=== PATIENT | male | born 1960 | race Caucasian/White ===

== ENCOUNTER → 2019-07-22 | Day surgery (SDC) | payer BC ==
[~2019-07-22] MED LIST: BUPIVACAINE 0.25% 30ML SDV INJ ONE; CEFAZOLIN SOD 1 GM/NS 50ML 150 ML IV ONE; DESFLURANE 240 ML BTL INH ONE; FENTANYL CITRATE/PF 100MCG/2 ML INJ ONE; INDOMETHACIN75 MG PO; KETOROLAC TROMETHAMINE 30 MG/ML VIAL ONE; LIDOCAINE 1% W/EPINEPHRINE 20 ML VIAL ONE; LIDOCAINE HCL 2% LOCAL INJ 5 ML SDV VIAL INJ ONE; LISINOPRIL-HCT1 EACH PO; MIDAZOLAM HCL 2 MG/2 ML VIAL ONE; MORPHINE SULFATE INJ 10 MG/ML ONE; ONDANSETRON HCL INJ 2MG/ML 2ML 2 MG/ML VIAL ONE; PROPOFOL IV EMULSION 10 MG/ML 20 ML VIAL ONE; TESTOSTERONE1.25 GM TOP
[2019-07-22 11:25] VITALS: BP 138/87
--- NOTE | 2019-07-22 22:27 | NUR ---
DATE OF SURGERY: 07/22/19 PREOPERATIVE DIAGNOSES: Left Knee Medial Meniscus Tear POSTOPERATIVE DIAGNOSES: Left Knee Medial Meniscus Tear, Medial Compartment Chondromalacia, Trochlea Chondromalacia, Impinging Plica, Pericruciate cyst PROCEDURE: Left Knee Arthroscopic Partial Medial Meniscectomy, Medial Femoral Condyle Chondroplasty, Trochlea Chondroplasty, Excision of Medial Impinging Plica, Excision of pericruciate cyst SURGEON: Adelina Steiner DO ANESTHESIA: General COMPLICATIONS: None TOURNIQUET: Applied but not inflated. No tourniquet EBL: Minimal INDICATIONS: Due to persistent pain and limitations on activity combined with findings on exam and imaging, the patient requests surgical treatment. Nonopera tive care and alternative surgical options were reviewed. We agreed that this provided the best risk/benefit profile for this patient, understanding and accepting risks of recurrent/persistent symptoms, infection, bleeding, stiffness, neurological/vascular damage, failure to improve and anesthetic complication (as reviewed by anesthesia service). Also, the patient understands that arthroscopic treatment of articular cartilage lesions provides temporary incomplete relief but that meniscal symptoms should be well addressed. FINDINGS: LEFT Knee Patella Grade 1 Chondromalacia Trochlea - Grade 1 Chondromalacia Lateral Gutter Normal Medial Gutter Normal Medial Compartment Femoral - Grade 3 Chondromalacia, Chondral defect of weight bearing surface Tibial - Grade 1 Chondromalacia Medial Meniscus - small posterior body horn junction attenuation/tear Cruciate region - PCL Cruciate cyst Lateral Compartment Femoral - Normal Tibial - Normal Lateral Meniscus - Normal Synovium - Large Impinging Plica PROCEDURE: With the patient in the supine position with all prominences well padded, general anesthesia was obtained. Sterile prepping and draping were performed. Antibiotics had been given and a time out performed. After an injection of 1% Lidocaine with Epinephrine in the proposed incision sites, The arthroscope was i nserted via a small lateral parapatellar tendon incision into the patellofemoral space. Under direct visualization, a medial parapatellar tendon portal was created providing a working portal. Diagnostic arthroscopy was performed and the above findings were noted. Within the patellofemoral space, the large impinging Plica was excised with a shaver Within the medial compartment, the medial meniscus was debrided to establish a well-balanced rim, removing approximately 10% of the posterior horn body junction of the medial meniscus. A stable border was created. There was grade 2-3 chondromalacia, which was debrided to stable borders. Within the intercondylar space, the ACL was visualized and intact. A pericruciate cyst on the PCL was debrided with a shaver. The lateral compartment was normal without a meniscus tear or significant chondromalacia Chondroplasty was performed on the trochlea to provide a stable border. The joint was extravasated and .25% marcaine was injected into the knee. The incisions were closed and more local was injected around the portal sites. Steristrips, Xeroform, 4x4s, ABDs and a compressive ARLEY bandage were applied. The patient was awakened and transferred to the PACU in satisfactory condition having tolerated the procedure well.
== END | disposition home or self-care (01) ==
LOC: OR 08:07
PROVIDERS: ATTEND Orthopaedic Surgery
DX: S83.232A Complex tear of medial meniscus, current injury, left knee, initial encounter (principal); M94.262 Chondromalacia, left knee; M67.52 Plica syndrome, left knee; M25.862 Other specified joint disorders, left knee; I10 Essential (primary) hypertension; G47.33 Obstructive sleep apnea (adult) (pediatric); X58.XXXA Exposure to other specified factors, initial encounter; Z01.810 Encounter for preprocedural cardiovascular examination
CPT/HCPCS: 29881; 93005; J0690; J1885; J2001; J2250; J2270; J2405; J2704; J3010

== ENCOUNTER 2022-12-14 09:23 | Emergency (ER) | payer BC ==
[~2022-12-14] VITALS: Ht 180.3 cm; Wt 176.4 kg
[~2022-12-14 09:23] MED LIST changes: -BUPIVACAINE 0.25% 30ML SDV INJ ONE; -CEFAZOLIN SOD 1 GM/NS 50ML 150 ML IV ONE; -DESFLURANE 240 ML BTL INH ONE; -FENTANYL CITRATE/PF 100MCG/2 ML INJ ONE; -KETOROLAC TROMETHAMINE 30 MG/ML VIAL ONE; -LIDOCAINE 1% W/EPINEPHRINE 20 ML VIAL ONE; -LIDOCAINE HCL 2% LOCAL INJ 5 ML SDV VIAL INJ ONE; -MIDAZOLAM HCL 2 MG/2 ML VIAL ONE; -MORPHINE SULFATE INJ 10 MG/ML ONE; -ONDANSETRON HCL INJ 2MG/ML 2ML 2 MG/ML VIAL ONE; -PROPOFOL IV EMULSION 10 MG/ML 20 ML VIAL ONE
[2022-12-14] MEDS ORDERED: ONDANSETRON HCL INJ 2MG/ML 2ML 2 MG/ML VIAL IV STA (09:24)
[2022-12-14] MEDS ORDERED: SODIUM CHLORIDE 0.9% 1000ML 1,000 ML IV ONE ×2 (09:30→11:45)
[2022-12-14 09:58] LABS: BASOPHILS # (AUTO) 0.1 (0.0-0.1); BASOPHILS % 0.6 % (0.0-1.0); EOSINOPHILS # (AUTO) 0.1 (0.0-0.4); EOSINOPHILS % 0.8 % (0.0-6.0); HEMATOCRIT 44.9 % (38.2-49.6); HEMOGLOBIN 14.7 g/dL (14.0-18.0); LYMPHOCYTES % 12.4 % (18.0-39.1); MEAN CORPUSCULAR HEMOGLOBIN 31.1 pg (28-32); MEAN CORPUSCULAR HGB CONC 32.7 g/dL (31-35); MEAN CORPUSCULAR VOLUME 95.1 fL (81-99); MONOCYTES # (AUTO) 1.7 (0.2-0.8); MONOCYTES % 10.4 % (4.4-11.3); NEUTROPHILS # (AUTO) 11.9 (2.1-6.9); PLATELET COUNT 208 x10e3/uL (140-360); RED BLOOD COUNT 4.72 x10e6/uL (4.3-5.7); RED CELL DISTRIBUTION WIDTH 12.5 % (11.7-14.4)
[2022-12-14] MEDS ORDERED: Morphine 4mg INJECTION 4 MG/ML INJ IV ONE (10:00)
[2022-12-14 10:15] LABS: ALBUMIN 3.8 g/dL (3.5-5.0); ALBUMIN/GLOBULIN RATIO 1.1 (0.8-2.0); ANION GAP 16.4 mmol/L (8-16); CALCIUM 9.3 mg/dL (8.4-10.2); CREATININE, SERUM 1.03 mg/dL (0.72-1.25); POTASSIUM 4.4 mmol/L (3.5-5.1)
[2022-12-14] MEDS ORDERED: IOPAMIDOL 370 MG/ML 100 ML INFUS..BTL INJ ONE (11:05)
[2022-12-14] MEDS ORDERED: METRONIDAZOLE 500MG/NS 100ML 100 ML IV STA (11:36)
[2022-12-14] MEDS ORDERED: KETOROLAC TROMETHAMINE 30 MG/ML VIAL IV STA (11:39)
[2022-12-14] MEDS ORDERED: CEFTRIAXONE 1 GM VIAL IV ONE (11:45)
[2022-12-14 11:47] LABS: CLARITY,URINE CLEAR (CLEAR); COLOR,URINE YELLOW (YELLOW)
[2022-12-14 11:48] LABS: BACTERIA,URINE FEW /HPF; EPITHELIAL CELLS,URINE FEW /LPF; KETONES,URINE NEGATIVE (NEGATIVE); LEUKOCYTE ESTERASE ,URINE NEGATIVE (NEGATIVE); NITRITE,URINE NEGATIVE (NEGATIVE); PROTEIN,URINE DIPSTICK NEGATIVE (NEGATIVE); RBC,URINE 0-5 /HPF (0-5); URINE UROBILINOGEN 0.2 mg/dL (0.2 - 1); WBC,URINE (MAN) 0-5 /HPF (0-5)
[2022-12-14] MEDS ORDERED: AMOX TR-K CLV1 EAC2 PO (13:10)
[2022-12-14] MEDS ORDERED: ONDANSETRON ODT4 MG PO (13:11)
[2022-12-14 13:38] VITALS: BP 132/81
[2022-12-17] MEDS ORDERED: KETOROLAC TROME10 MG PO (10:15)
== END 2022-12-14 13:00 | disposition home or self-care (01) ==
LOC: ER 09:25
DX: R10.32 Left lower quadrant pain (principal); K57.92 Diverticulitis of intestine, part unspecified, without perforation or abscess without bleeding; I10 Essential (primary) hypertension
CPT/HCPCS: 36415; 74177; 80053; 81001; 83690; 85025; 99284; J0696; J1885; J2270; J2405; J7030; Q9967

== ENCOUNTER 2022-12-15 12:47 | Observation (INO) | payer BC ==
[~2022-12-15] VITALS: Ht 180.3 cm; Wt 176.4 kg
[~2022-12-15 12:47] MED LIST changes: +AMOX TR-K CLV1 EAC2 PO; +ONDANSETRON ODT4 MG PO
[2022-12-15] MEDS ORDERED: ONDANSETRON HCL INJ 2MG/ML 2ML 2 MG/ML VIAL IV STA (12:58)
[2022-12-15] MEDS ORDERED: METRONIDAZOLE 500MG/NS 100ML 100 ML IV ONE ×2 (13:00→18:30)
[2022-12-15] MEDS ORDERED: Morphine 4mg INJECTION 4 MG/ML INJ IV ONE (13:00)
[2022-12-15] MEDS ORDERED: CEFTRIAXONE 1 GM VIAL IV ONE (13:00)
[2022-12-15 13:38] LABS: BASOPHILS # (AUTO) 0.1 (0.0-0.1); BASOPHILS % 0.8 % (0.0-1.0); EOSINOPHILS # (AUTO) 0.3 (0.0-0.4); EOSINOPHILS % 2.8 % (0.0-6.0); HEMATOCRIT 42.9 % (38.2-49.6); HEMOGLOBIN 14.2 g/dL (14.0-18.0); LYMPHOCYTES # (AUTO) 1.6 (1.0-3.2); LYMPHOCYTES % 17.3 % (18.0-39.1); MEAN CORPUSCULAR HGB CONC 33.1 g/dL (31-35); MEAN CORPUSCULAR VOLUME 93.7 fL (81-99); MONOCYTES # (AUTO) 0.8 (0.2-0.8); MONOCYTES % 9.1 % (4.4-11.3); NEUTROPHILS # (AUTO) 6.3 (2.1-6.9); NEUTROPHILS % 69.6 % (38.7-80.0); PLATELET COUNT 238 x10e3/uL (140-360); RED BLOOD COUNT 4.58 x10e6/uL (4.3-5.7); RED CELL DISTRIBUTION WIDTH 12.3 % (11.7-14.4)
[2022-12-15 13:57] LABS: ALBUMIN 3.5 g/dL (3.5-5.0); ANION GAP 15.8 mmol/L (8-16); CALCIUM 9.1 mg/dL (8.4-10.2); CREATININE, SERUM 0.89 mg/dL (0.72-1.25); POTASSIUM 3.8 mmol/L (3.5-5.1)
[2022-12-15 16:50] VITALS: BP 134/80
[2022-12-15 17:25] VITALS: BP 134/80
[2022-12-15] MEDS: SODIUM CHLORIDE 0.9% 1000ML 1,000 ML IV SCH ×2 (17:54→21:28)
[2022-12-15 18:27] VITALS: BP 134/80
[2022-12-15 20:00] VITALS: BP 110/72
[2022-12-15] MEDS: Morphine 4mg INJECTION 4 MG/ML INJ IV PRN (22:17)
[2022-12-15] MEDS: ONDANSETRON HCL INJ 2MG/ML 2ML 2 MG/ML VIAL IV PRN (22:17)
[2022-12-16] VITALS (7 sets, daily range): BP systolic 100–120; BP diastolic 62–74
[2022-12-16] MEDS: SODIUM CHLORIDE 0.9% 1000ML 1,000 ML IV SCH ×3 (04:33→22:34)
[2022-12-16] MEDS: ONDANSETRON HCL INJ 2MG/ML 2ML 2 MG/ML VIAL IV PRN ×2 (04:33→08:38)
[2022-12-16] MEDS: Morphine 4mg INJECTION 4 MG/ML INJ IV PRN ×2 (04:34→08:38)
[2022-12-16 06:25] LABS: BASOPHILS # (AUTO) 0.1 (0.0-0.1); BASOPHILS % 1.4 % (0.0-1.0); EOSINOPHILS # (AUTO) 0.3 (0.0-0.4); EOSINOPHILS % 3.5 % (0.0-6.0); HEMOGLOBIN 13.6 g/dL (14.0-18.0); LYMPHOCYTES # (AUTO) 1.5 (1.0-3.2); LYMPHOCYTES % 18.2 % (18.0-39.1); MEAN CORPUSCULAR HEMOGLOBIN 33.3 pg (28-32); MEAN CORPUSCULAR HGB CONC 31.6 g/dL (31-35); MONOCYTES # (AUTO) 0.8 (0.2-0.8); MONOCYTES % 9.2 % (4.4-11.3); NEUTROPHILS # (AUTO) 5.6 (2.1-6.9); NEUTROPHILS % 67.1 % (38.7-80.0); PLATELET COUNT 200 x10e3/uL (140-360); RED BLOOD COUNT 4.09 x10e6/uL (4.3-5.7); RED CELL DISTRIBUTION WIDTH 13.1 % (11.7-14.4)
[2022-12-16 06:28] LABS: ALBUMIN 3.2 g/dL (3.5-5.0); ANION GAP 17.2 mmol/L (8-16); CALCIUM 8.9 mg/dL (8.4-10.2); CREATININE, SERUM 0.87 mg/dL (0.72-1.25); POTASSIUM 4.2 mmol/L (3.5-5.1)
[2022-12-16 06:35] LABS: MEAN CORPUSCULAR VOLUME 105.1 fL (81-99)
[2022-12-16] MEDS ORDERED: ACETAMINOPHEN 325 MG TAB PO PRN (08:30)
[2022-12-16] MEDS ORDERED: KETOROLAC TROMETHAMINE 10 MG TAB PO PRN (08:45)
[2022-12-16] MEDS: DOCUSATE SODIUM 100 MG CAP PO SCH (08:56)
[2022-12-16] MEDS: SENNOSIDES 8.6 MG TAB PO SCH (08:56)
[2022-12-16] MEDS ORDERED: KETOROLAC TROMETHAMINE 30 MG/ML VIAL IV ONE (10:00)
[2022-12-16] MEDS: HYDROCODONE/APAP 7.5MG-325MG 1 EA TAB PO PRN ×2 (12:43→17:01)
[2022-12-16] MEDS ORDERED: POLYETHYLENE GLYCOL 3350 17 GM PACK PO ONE (16:00)
[2022-12-16] MEDS ORDERED: ENOXAPARIN SOD INJ 40 MG/0.4 ML SYR SC SCH (17:00)
[2022-12-17 00:55] VITALS: BP 124/76
[2022-12-17 05:37] LABS: BASOPHILS # (AUTO) 0.1 (0.0-0.1); BASOPHILS % 1.3 % (0.0-1.0); EOSINOPHILS # (AUTO) 0.3 (0.0-0.4); EOSINOPHILS % 5.3 % (0.0-6.0); HEMATOCRIT 38.7 % (38.2-49.6); HEMOGLOBIN 12.6 g/dL (14.0-18.0); LYMPHOCYTES # (AUTO) 1.5 (1.0-3.2); LYMPHOCYTES % 24.1 % (18.0-39.1); MEAN CORPUSCULAR HEMOGLOBIN 31.2 pg (28-32); MEAN CORPUSCULAR HGB CONC 32.6 g/dL (31-35); MEAN CORPUSCULAR VOLUME 95.8 fL (81-99); MONOCYTES # (AUTO) 0.6 (0.2-0.8); MONOCYTES % 9.5 % (4.4-11.3); NEUTROPHILS # (AUTO) 3.7 (2.1-6.9); NEUTROPHILS % 59.2 % (38.7-80.0); PLATELET COUNT 209 x10e3/uL (140-360); RED BLOOD COUNT 4.04 x10e6/uL (4.3-5.7); RED CELL DISTRIBUTION WIDTH 12.2 % (11.7-14.4)
[2022-12-17 05:53] VITALS: BP 134/79
[2022-12-17 06:10] LABS: ALBUMIN 3.1 g/dL (3.5-5.0); ANION GAP 14.4 mmol/L (8-16); CALCIUM 8.5 mg/dL (8.4-10.2); CREATININE, SERUM 0.88 mg/dL (0.72-1.25); POTASSIUM 4.4 mmol/L (3.5-5.1)
[2022-12-17] MEDS: SODIUM CHLORIDE 0.9% 1000ML 1,000 ML IV SCH (06:27)
[2022-12-17 07:55] VITALS: BP 134/79
[2022-12-17] MEDS: DOCUSATE SODIUM 100 MG CAP PO SCH (08:56)
[2022-12-17] MEDS: SENNOSIDES 8.6 MG TAB PO SCH (08:57)
[2022-12-17] MEDS ORDERED: KETOROLAC TROME10 MG PO (10:15)
== END 2022-12-17 10:48 | disposition home or self-care (01) ==
LOC: ER 12:57 → ERHOLD 13:13 → MED/SURG2 16:44
PROVIDERS: ADMIT Internal Medicine; ATTEND Internal Medicine
DX: K57.92 Diverticulitis of intestine, part unspecified, without perforation or abscess without bleeding (principal); E78.5 Hyperlipidemia, unspecified; K76.0 Fatty (change of) liver, not elsewhere classified; D53.9 Nutritional anemia, unspecified; E66.01 Morbid (severe) obesity due to excess calories; Z68.43 Body mass index [BMI] 50.0-59.9, adult; M19.91 Primary osteoarthritis, unspecified site; Z20.822 Contact with and (suspected) exposure to COVID-19
CPT/HCPCS: 36415 ×3; 80053 ×3; 82607; 82746; 83690; 83735 ×2; 85025 ×3; 99284; G0378 ×3; J0696; J1650; J2270 ×2; J2405 ×2; J2543 ×2; J7030 ×3; U0002